=== PATIENT | male | born 1980 | race Two or more races ===

== ENCOUNTER 2019-12-17 00:10 | Emergency (ER) | payer OTHER ==
[~2019-12-17] VITALS: Ht 172.7 cm; Wt 64.0 kg
[2019-12-17 00:16] VITALS: BP 144/91
== END 2019-12-17 01:13 | disposition home or self-care (01) ==
LOC: ER 00:10
DX: R41.82 Altered mental status, unspecified (principal); F12.10 Cannabis abuse, uncomplicated; F17.200 Nicotine dependence, unspecified, uncomplicated
CPT/HCPCS: 99283